=== PATIENT | male | born 1960 | race Caucasian/White ===

== ENCOUNTER 2016-09-10 12:47 | Inpatient (IN) | payer MEDICAID ==
--- NOTE | ~2016-09-10 | PN ---
Unit #: [id number] #: [id number] Patient: QING FERRARA [id number] [facility] [address] [place] [address] [id number] MR#: [id number] NAME: QING FERRARA ROOM: P206 Age: 56 Sex: M Admission Date: 09/10/2016 : 1960 Attending Physician: Huber Moon M.D. Admitting Physician: Huber Moon M.D. Primary Care Physician: Primary Care Physician Yi SETH PROGRESS NOTES DATE September 11, 2016 DISCUSSION Mr. Ferrara is a 56-year-old white male, with substance abuse and mood disorder, who was seen today and chart was reviewed and the case was discussed with the staff. He was seen to be anxious, withdrawn, unkept, and disheveled, and seclusive to himself, as he is detoxing. Meanwhile, he has been taking the medications and tolerating them fairly well with no reported side effects. MENTAL STATUS EXAMINATION Middle-aged white male, who was casually dressed with marginal personal hygiene and appears to be in no acute distress or discomfort. He was awake and alert on interaction with impaired attention and concentration. His mood is anxious with a congruent affect. His speech is slow and tangential. His thought processes are disorganized with some looseness of associations and flight of ideas. His insight and judgment remain significantly impaired. TREATMENT PLAN 1. We will continue him on his current medications and treatment protocol, and will monitor his response to the medications, and will maintain the detox treatment protocol. 2. We will continue to followup. Dictated by... Mimi Castro/colby TD: 09/12/2016 12:29 JOB #: [id number] Unit #: [id number] #: [id number] Patient: QING FERRARA PROGRESS NOTES X Huber Moon MD PROGRESS NOTE
--- NOTE | ~2016-09-10 | PA ---
Unit #: [id number] #: [id number] Patient: QING FERRARA [id number] [facility] [address] [place] [address] [id number] MR#: [id number] NAME: QING FERRARA ROOM: P206 Age: 56 Sex: M Admission Date: 09/10/2016 : 1960 Date of Assessment: Attending Physician: Huber Moon M.D. Admitting Physician: Huber Moon M.D. Primary Care Physician: Primary Care Physician No PSYCHIATRIC ASSESSMENT DATE OF SERVICE 09/10/2016. IDENTIFYING DATA Mr. Ferrara is a 56-year-old, single, white male, who is a resident of [place], [place] and was self-referred to the hospital on voluntary basis. CHIEF COMPLAINT "I'm drunk." HISTORY OF PRESENT ILLNESS Mr. Ferrara is a 56-year-old white male who was brought to the hospital on his own and upon presentation, had a blood alcohol level of 0.228 when assessed and was not seen to be in acute complications, therefore recommendation for the patient to stay for medical detox was made. The patient stated that since he got out of the [facility], he continues to drink every day which was 90 days ago and reports drinking 2 gallons of vodka a day. He reports that his last drink was 20 minutes ago and reports that he has a history of withdrawal seizures with the last one being last week and reports his longest time of nonuse of alcohol was 25 years, but this was due to being in [facility]. He denied any other substance abuse and reports increasing depression, anxiety, irritability, restlessness, feelings of hopelessness and helplessness, but denies any suicidal ideations, intent, or plan. SUBSTANCE ABUSE HISTORY The patient reports history of alcohol abuse and dependence and has been drinking since he was in his 20s and currently has relapsed 90 days ago when he got out of the [facility] and has been drinking 2 gallons of vodka a day. PAST PSYCHIATRIC HISTORY The patient has not had any prior inpatient or outpatient psychiatric or chemical dependency treatment. Review of the medical records indicate that currently he is not active in any treatment program, though he has been on Prozac and Remeron from the [facility] and it is not clear if he has been compliant with those medications as I could not see patient is seeing a psychiatrist outside of the present system. PAST MEDICAL HISTORY No acute or chronic medical illnesses. Unit #: [id number] #: [id number] Patient: QING FERRARA ALLERGIES No known medication allergies. PERSONAL AND SOCIAL HISTORY A 56-year-old white male who reports that he is single, unemployed, and lives by himself and has poor social support system. MENTAL STATUS EXAMINATION Middle-aged white male, who was casually dressed with fair personal hygiene, appears to be in no acute distress or discomfort. He was awake and alert on interaction with intact orientation to time, place, and person. His mood was anxious and depressed with a congruent affect. His speech was slow and goal directed. His thought processes were disorganized with some looseness of associations. He denies any suicidal or homicidal ideations, and also denies any auditory or visual hallucinations. His insight and judgment remain significantly impaired. DIAGNOSTIC IMPRESSION Psychiatric: Alcohol dependence, moderate and acute withdrawals; major depressive disorder, recurrent, moderate, without psychotic features. Medical: None. Stressors: Moderate psychosocial stressors. TREATMENT PLAN 1. The patient has presented with a history of substance abuse and mood disorder, and has been decompensating and will need inpatient hospitalization for detoxification, safety, and stabilization. We will start him on detox protocol. We will closely monitor for any worsening withdrawal symptoms. 2. Supportive therapy was provided to the patient. 3. Safe, structured, and nourishing environment will be provided. ESTIMATED LENGTH OF STAY 5 to 7 days. ABILITY TO HELP SELF Limited. WILLINGNESS TO HELP SELF The patient appears to be willing to help self. STRENGTHS 1. Communicative. 2. Cooperative. PROBLEMS 1. Chronic dysphoric symptoms. 2. Chronic chemical dependency. 3. Poor social support system. DISCHARGE CRITERIA This will be contingent upon the patient's ability to go through detox without having any significant withdrawal symptoms as well as his ability to stay safe to himself, particularly after discharge from the hospital. Dictated by... Unit #: [id number] #: [id number] Patient: QING FERRARA Mimi Castro/freedom TD: 09/11/2016 23:56 JOB #: [id number] PSYCHIATRIC ASSESSMENT X Huber Moon MD PSYCHIATRIC ASSESSMENT
--- NOTE | ~2016-09-10 | PN ---
Unit #: [id number] #: [id number] Patient: QING FERRARA [id number] [facility] [address] [place] [address] [id number] MR#: [id number] NAME: QING FERRARA ROOM: P206 Age: 56 Sex: M Admission Date: 09/10/2016 : 1960 Attending Physician: Huber Moon M.D. Admitting Physician: Huber Moon M.D. Primary Care Physician: Primary Care Physician Yi SKELTON NOTES DATE OF SERVICE: 09/12/2016 SUBJECTIVE Mr. Ferrara is a 56-year-old white male, who was seen today and chart was reviewed and the case was discussed with the staff. He has been anxious and withdrawn, but has not shown any agitation, irritability, or behavioral problems and has been cooperative with the treatment recommendations and has been taking the medications, though still has been anxious, restless, and in acute detox as well as unable to do activities of daily living and has not been able to take care of his personal hygiene as well. MENTAL STATUS EXAMINATION Middle-aged white male, who was casually dressed with marginal personal hygiene, appears to be in distress and discomfort. He was awake and alert with impaired attention and concentration. His mood was anxious with a congruent affect. His speech was slow and restricted in content. He denies any suicidal or homicidal ideations and also denies any auditory or visual hallucinations. His insight and judgment remain slightly impaired. TREATMENT PLAN 1. We will continue him on his current medications and detox protocol. We will monitor his response to the medications and make further adjustments as needed. 2. We will continue to follow up. Dictated by... Mimi Castro/freedom TD: 09/12/2016 14:02 JOB #: [id number] Unit #: [id number] #: [id number] Patient: QING FERRARA NAFISA NOTES X Huber Moon MD PROGRESS NOTE
--- NOTE | ~2016-09-10 | PN ---
Unit #: [id number] #: [id number] Patient: QING FERRARA [id number] [facility] [address] [place] [address] [id number] MR#: [id number] NAME: QING FERRARA ROOM: P206 Age: 56 Sex: M Admission Date: 09/10/2016 : 1960 Attending Physician: Huber Moon M.D. Admitting Physician: Huber Moon M.D. Primary Care Physician: Primary Care Physician Yi SKELTON NOTES DATE September 13, 2016 DISCUSSION Mr. Ferrara is a 56-year-old white male, with substance abuse and mood disorder, who was seen today and chart was reviewed and the case was discussed with the staff. He was lying in his bed and seemed to be anxious and withdrawn, unkept, disheveled, and seclusive to himself. Meanwhile, he has been compliant with the treatment recommendations and he has been taking the medications and tolerating them fairly well with no reported side effects. MENTAL STATUS EXAMINATION Middle-aged white male, who was casually dressed with marginal personal hygiene and appears to be in distress and discomfort. He was awake and alert on interaction with intact orientation. His mood is anxious with a congruent affect. His speech is slow and tangential. His thought processes are disorganized with some looseness of associations. His insight and judgment remain significantly impaired. TREATMENT PLAN 1. We will continue him on his current medications and treatment protocol, and will monitor his response to the medications, and make further adjustments as needed. 2. We will continue to followup. Dictated by... Mimi Castro/colby TD: 09/14/2016 09:50 JOB #: [id number] Unit #: [id number] #: [id number] Patient: QING FERRARA PROGRESS NOTES X Huber Moon MD PROGRESS NOTE
--- NOTE | ~2016-09-10 | HP ---
Unit #: [id number] #: [id number] Patient: ZAHEER CASILLAS [id number] [facility] [address] [place] [address] [id number] I MR#: [id number] NAME: ZAHEER CASILLAS ROOM: P206 Age: 56 Sex: M Admission Date: 09/10/2016 : 1960 Attending Physician: Huber Moon M.D. Admitting Physician: Huber Moon M.D. Primary Care Physician: Primary Care Physician No HISTORY AND PHYSICAL HISTORY OF PRESENT ILLNESS Zaheer is a 56 year old admitted to [address] [place] [address] because of his abuse of alcohol on 08/29/2016. He was admitted to [facility] in acute hypoxic respiratory failure secondary to his abuse of alcohol. When medically stable, he was transferred to [facility] for psychiatric care. The patient was seen and H and P from [facility] dated 08/30/2016 was reviewed. This is current. No changes. Please see H and P dated 08/30/2016 and discharge summary dated 08/31/2016. Dictated by... Cinthya Tang P.A.-C. for Mimi Quinn/mila TD: 09/11/2016 10:01 JOB #: [id number] HISTORY AND PHYSICAL X Cinthya Tang HISTORY AND PHYSICAL
--- NOTE | ~2016-09-10 | CO ---
Unit #: [id number] #: [id number] Patient: ZAHEER CASILLAS [id number] [facility] [address] [place] [address] [id number] I MR#: [id number] NAME: ZAHEER CASILLAS ROOM: P206 Age: 56 Sex: M Admission Date: 09/10/2016 : 1960 Attending Physician: Huber Moon M.D. Primary Care Physician: Primary Care Physician No Consultation Date: 09/10/2016 CONSULTATION REPORT SUBJECTIVE Zaheer is a 56-year-old who was admitted to [facility] from [facility] where he was treated for respiratory failure associated with his abuse of alcohol. When medically stable, he was transferred to [facility] for psychiatric care. At time of admission, he had some minimal swelling in both legs, right greater than left. There was some concern that this could be cellulitis or DVT. We have been asked to assess and treat. OBJECTIVE GENERAL: Alert, obese, no apparent distress. VITAL SIGNS: Blood pressure 120/88, heart rate 80, respirations 16, and T-max 98.6. SKIN: Warm and dry without rash. EXTREMITIES: No evidence of cyanosis or clubbing. Minimal swelling in both lower extremities, right greater than left. There is minimal redness in the right calf. SKIN: Intact. Negative Homans bilaterally. ASSESSMENT Dependent edema. PLAN Continue detox, hydration, and the patient knows to keep his legs elevated as much as he can during the day. Dictated by... Cinthya Tang P.A.-C. for Mimi Quinn/freedom TD: 09/17/2016 22:41 JOB #: [id number] Unit #: [id number] #: [id number] Patient: ZAHEER CASILLAS CONSULTATION REPORT X Cinthya Tang CONSULTATION REPORT
--- NOTE | ~2016-09-10 | DS ---
Unit #: [id number] #: [id number] Patient: [facility]ERR[facility] [id number] [facility] [address] [place] [address] [id number] I MR#: [id number] NAME: QING FERRARA ROOM: P206 Age: 56 Sex: M Admission Date: 09/10/2016 : 1960 Discharge Date: 09/13/2016 Attending Physician: Huber Moon M.D. Primary Care Physician: Primary Care Physician No DISCHARGE SUMMARY IDENTIFYING DATA Mr. Ferrara is a 56-year-old white male who is known to us from previous encounter and is a resident of [place], [place], and was transferred to us from [facility]. DISCHARGE DIAGNOSES Psychiatric: Alcohol dependence, moderate and acute withdrawal; alcohol-induced mood disorder. Medical: None. Stressors: Moderate psychosocial stressors. HISTORY OF PRESENT ILLNESS Please see initial psychiatric evaluation for details. PAST PSYCHIATRIC HISTORY Please see initial psychiatric evaluation for details. PAST MEDICAL HISTORY Please see initial psychiatric evaluation for details. HOSPITAL COURSE The [facility] and was oriented to the hospital environment. Routine p.r.n. medications were initiated and started back on his home medications. Medications were adjusted and he was started on the detox protocol; however, he was seen to be showing poor insight into his situation and refusing to cooperate with treatment recommendation and was wanting to sign out against medical advice and was denying any suicidal or homicidal ideation, and was not seen to be danger to self or anyone else, though he was encouraged to complete the treatment program. He refused to accept the treatment recommendations and as such, it was decided that he will be discharged against medical advice. DISCHARGE MEDICATIONS None. DISCHARGE CONDITION Stable. PROGNOSIS Guarded. Dictated by... Unit #: [id number] #: [id number] Patient: QING FERRARA Mimi Castro/freedom TD: 10/24/2016 12:49 JOB #: [id number] DISCHARGE SUMMARY Page 1 of 1 X Huber Moon MD X DISCHARGE SUMMARY
[~2016-09-10 12:47] MED LIST: NO MEDICATIONS
[2016-09-11 12:31] LABS: BASOPHIL# 0.1 X10e3 (0-0.3); BASOPHIL% 1.3 % (0-2.5); EOSINOPHIL# 0.1 X10e3 (0-0.7); EOSINOPHIL% 1.1 % (0.0-7.0); HEMATOCRIT 43.4 % (38.0-50.0); HEMOGLOBIN 13.9 gm/dL (13.0-16.0); LYMPHOCYTE# 0.7 X10e3 (1.0-3.5); LYMPHOCYTE% 9.8 % (17.0-45.0); MEAN CELL VOLUME 92.2 FL (83-96); MEAN CORPUSCULAR HEMOGLOBIN 29.4 PG (28-34); MEAN CORPUSCULAR HGB CONC 31.9 g/dL (30-36); MEAN PLATELET VOLUME 8.8 FL (6.5-11.5); MONOCYTE# 0.5 X10e3 (0-1.0); MONOCYTE% 7.2 % (3.0-12.0); NEUTROPHIL# 5.9 X10e3 (1.5-7.1); NEUTROPHIL% 80.6 % (40-75); PLATELET COUNT 216 X10e3 (140-420); RED BLOOD COUNT 4.71 X10e (3.90-5.60); RED CELL DISTRIBUTION WIDTH 17.2 % (11.0-15.5); WHITE BLOOD COUNT 7.4 X10e3 (4.0-10.5)
[2016-09-11 12:34] LABS: DIFF IND NO
[2016-09-11 12:47] LABS: ALBUMIN SERUM 3.1 g/dL (3.5-5.0); ALKALINE PHOSPHATASE 87 U/L (32-92); ALT (SGPT) 44 U/L (10-40); AST (SGOT) 48 U/L (10-42); BLOOD UREA NITROGEN 10 mg/dL (9-23); CALCIUM SERUM 8.6 mg/dL (8.4-10.2); CARBON DIOXIDE 29 mmol/L (22-31); CHLORIDE 101 mmol/L (100-111); CREATININE SERUM 0.8 mg/dL (0.6-1.4); GLOM FILT RATE Estimated ABOVE60 mL/min (>60); GLUCOSE FASTING 114 mg/dL (70-110); POTASSIUM 3.9 mmol/L (3.5-5.1); PROTEIN TOTAL SERUM 5.8 g/dL (6.0-8.3); SODIUM 136 mmol/L (135-145)
[2016-09-11 12:52] LABS: THYROID STIMULATING HORMONE 2.4 uIU/ml (0.34-5.60)
[2016-09-11 12:59] LABS: FREE THYROXIN (T4) 0.74 ng/dL (0.58-1.64)
[2016-09-12 09:53] LABS: URINE APPEARANCE CLEAR; URINE BLOOD NEG (NEG); URINE COLOR DK YELLOW; URINE GLUCOSE NEG (NEG); URINE KETONE 1+ (NEG); URINE LEUKOCYTE ESTERASE NEG (NEG); URINE NITRATE NEG (NEG); URINE PROTEIN 1+ (NEG); URINE SPECIFIC GRAVITY 1.017 (1.003-1.035)
[2016-09-12 10:00] LABS: URBCS1 AUWI 0-2 /[HPF] (0-2); URINE BACTERIA AUWI NEG (NEGATIVE); URINE SQUAMOUS EPITHELIAL CELL NONE SEEN /[HPF]
[2016-09-12 10:10] LABS: URINE BILIRUBIN NEG (NEG)
[2016-09-12 10:14] LABS: UWBCS1 AUWI 0-2 (0-5)
[2016-09-12 10:15] LABS: U HYALINE CASTS AUWI 0-2 /[LPF]; URINE GRANULAR CAST 0-2 /[HPF]; URINE MUCUS PRESENT; URINE SPERM PRESENT
[2016-09-12 10:35] LABS: AMPHETAMINE NEG (NEG); BARBITURATES NEG (NEG); BENZODIAZEPINES POS (NEG); COCAINE NEG (NEG); MARIJUANA NEG (NEG); OPIATES NEG (NEG); TRICYCLIC ANTIDEPRESSANTS NEG (NEG); U METHADONE NEG (NEG)
== END 2016-09-13 14:15 | disposition left against medical advice (07) | DRG 894 ==
LOC: P2S 12:47
PROVIDERS: Psychiatry & Neurology Psychiatry
PROC: HZ2ZZZZ Detoxification Services for Substance Abuse Treatment (ICD-10-PCS; principal; 2016-09-10)
DX: F10.239 Alcohol dependence with withdrawal, unspecified (principal); F33.1 Major depressive disorder, recurrent, moderate; Y90.7 Blood alcohol level of 200-239 mg/100 ml
CPT/HCPCS: 80053; 80307; 81003; 84439; 84443; 85025; 86592

== ENCOUNTER 2016-10-19 12:51 | Inpatient (IN) | payer MEDICAID ==
--- NOTE | ~2016-10-19 | DS ---
Unit #: [id number] #: [id number] [facility]: [facility]ARA [id number] [facility] [address] [place] [address] [id number] I MR#: [id number] NAME: QING FERRARA ROOM: [facility] Age: 56 Sex: M Admission Date: 10/19/2016 : 1960 Discharge Date: Attending Physician: Huber Moon M.D. DISCHARGE SUMMARY IDENTIFYING DATA Mr. Ferrara is a 56-year-old single white male, who is a resident of [place], [place] and is known to us from previous encounter and was self-referred to the hospital. DISCHARGE DIAGNOSES Psychiatric: Alcohol dependence, moderate, in acute withdrawals; alcohol-induced mood disorder. Medical: None. Stressors: Moderate psychosocial stressors. HISTORY OF PRESENT ILLNESS Please see initial psychiatric evaluation for details. PAST PSYCHIATRIC HISTORY Please see initial psychiatric evaluation for details. PAST MEDICAL HISTORY Please see initial psychiatric evaluation for details. HOSPITAL COURSE The patient was admitted to the adult chemical dependency unit at [facility] christina Melendrez and was oriented to the hospital environment. Routine p.r.n. medications were initiated and started on the detox protocol and was closely monitored. He was seen to be anxious, restless, and showing very poor insight into situation, poor motivation towards treatment. However, he was able to come out of the detox without any complications and is willing to continue treatment on an outpatient basis and as such, it was decided that he will be discharged home and will continue treatment on an outpatient basis. DISCHARGE CONDITION Stable. PROGNOSIS Fair. Dictated by... Huber Moon M.D. IAA/modl Unit #: [id number] #: [id number] Patient: QIGN FERRARA TD: 10/24/2016 07:21 JOB #: [id number] DISCHARGE SUMMARY Page 1 of 1 X Huber Moon MD X DISCHARGE SUMMARY
--- NOTE | ~2016-10-19 | PN ---
Unit #: [id number] #: [id number] Patient: QING FERRARA [id number] [facility] [address] [place] [address] [id number] I MR#: [id number] NAME: QING FERRARA ROOM: P207 Age: 56 Sex: M Admission Date: 10/19/2016 : 1960 Attending Physician: Huber Moon M.D. Admitting Physician: Huber Moon M.D. Primary Care Physician: Generic Doctor Not In System [facility] PROGRESS NOTES DATE 10/22/2016 DISCUSSION Mr. Ferrara is a 56-year-old white male with alcohol dependence who was seen today and chart was reviewed and case was discussed with the staff who report patient has been confused, anxious, disorganized and has been exhibiting bizarre behavior and has been pushing to leave even though he is quite compromised, unstable and unsteady on his feet with personal hygiene. MENTAL STATUS EXAMINATION Middle-aged white male who was casually dressed with fair personal hygiene and appears to be in no acute distress or discomfort. He was awake and alert with impaired attention and concentration. His mood was anxious with congruent affect. His speech is slow and restricted in content. His thought processes were disorganized with some looseness of associations. His insight and judgement remains significantly impaired. TREATMENT PLAN 1. Will continue him on his current medications and treatment protocol. Will monitor response to medications and make further adjustments as needed. 2. Will continue to follow up. Dictated by... Mimi Castro/robson TD: 10/23/2016 22:58 JOB #: [id number] Unit #: [id number] #: [id number] Patient: QING FERRARA PROGRESS NOTES Page 1 of 1 X Huber Moon MD PROGRESS NOTE
--- NOTE | ~2016-10-19 | HP ---
Unit #: [id number] #: [id number] Patient: ZAHEER CASILLAS [id number] [facility] [address] [place] [address] [id number] I MR#: [id number] NAME: ZAHEER CASILLAS ROOM: P207 Age: 56 Sex: M Admission Date: 10/19/2016 : 1960 Attending Physician: Huber Moon M.D. Admitting Physician: Huber Moon M.D. Primary Care Physician: Generic Doctor Not In System HISTORY AND PHYSICAL HISTORY OF PRESENT ILLNESS Zaheer is a 56-year-old male admitted to [address] [place] [address] for detox from alcohol. PAST MEDICAL HISTORY None. PAST SURGICAL HISTORY None. SOCIAL HISTORY Smokes 1 pack of cigarettes daily; drinks 2 fifths of alcohol daily. Denies illegal drug use. He is currently and homeless. FAMILY HISTORY Noncontributory. REVIEW OF SYSTEMS CONSTITUTIONAL: No fever or chills. HEENT: Denies any sore throat, ear pain or runny nose. CARDIOVASCULAR: Denies chest pain, irregular heart rhythm or palpitations. CHEST: Denies shortness of breath or cough. No hemoptysis. GASTROINTESTINAL: Denies nausea, vomiting, diarrhea or chronic constipation. ENDOCRINE: Denies history of increased thirst or urination. No recent significant weight loss or gain. GENITOURINARY: Denies dysuria, frequency, or hematuria. SKIN: Denies any rashes. HEMATOLOGIC: Denies history of increased bleeding or bruising. MUSCULOSKELETAL: Denies any hot, swollen joints. No generalized muscle pain. NEUROLOGIC: Denies problems with vision or speech. No frequent, severe headaches. No numbness, tingling or weakness in any extremities. Denies loss of bladder or bowel control. CURRENT MEDICATIONS None. ALLERGIES None. PHYSICAL EXAMINATION GENERAL: Alert, oriented, no acute distress. Unit #: [id number] #: [id number] Patient: ZAHEER CASILLAS VITAL SIGNS: Blood pressure 157/97, heart rate 91, respirations 20, temperature 97.7. HEIGHT: 5 feet 8. WEIGHT: 198 pounds. SKIN: Warm, dry. No rashes or lesions, track boyd, cuts, etc. HEENT: Normocephalic. TMs not viewed. Oronasal passages clear. Conjunctivae clear. PERRLA. EOM is intact. NECK: No lymphadenopathy or thyromegaly. HEART: Regular rate and rhythm. No murmur, gallop, or rub. LUNGS: Clear to auscultation bilaterally. ABDOMEN: Soft, nontender without palpable masses or hepatosplenomegaly. : Not assessed. EXTREMITIES: No evidence of cyanosis, clubbing, or edema. Moves all extremities independently without obvious deficit. NEUROLOGICAL: Grossly within normal limits. Cranial Nerves: II: Visual florence are intact. III, IV AND : Extraocular movements are intact. Pupils are equal, round and reactive to light. V: Facial sensation is grossly normal. VII: Facial movements and expression are normal. VIII: Auditory acuity grossly intact. IX, X: Uvula is midline. Phonation is normal. XI: Patient shrugs shoulders and turns head normally. XII: Tongue protrudes in the midline. Sensory and Motor Function: Sensory and motor sensation is grossly normal. Motor: moves all extremities well. Coordination: Gait is normal. Deep Tendon Reflexes: Intact. IMPRESSION Psychiatric admission. RECOMMENDATIONS PSYCHIATRIC: Per psychiatrist. MEDICAL: No contraindication to participate in this facility's activities. MEDICAL PROGNOSIS Good. MEDICAL CONDITION Stable. Dictated by... Gracy Perez TD: 10/20/2016 14:09 JOB #: [id number] Unit #: [id number] #: [id number] Patient: ZAHEER CASILLAS HISTORY AND PHYSICAL Page 1 of 1 X CHRIS WIN APRN X HISTORY AND PHYSICAL
--- NOTE | ~2016-10-19 | PN ---
Unit #: [id number] #: [id number] Patient: QING FERRARA [id number] [facility] [address] [place] [address] [id number] I MR#: [id number] NAME: QIGN FERRARA ROOM: P207 Age: 56 Sex: M Admission Date: 10/19/2016 : 1960 Attending Physician: Huber Moon M.D. Admitting Physician: Huber Moon M.D. Primary Care Physician: Generic Doctor Not In System [facility] PROGRESS NOTES DATE 10/20/2016 DISCUSSION Mr. Ferrara is a 56-year-old, white male who was seen today and chart was reviewed and case was discussed with the staff. He has been anxious, restless, irritable and impulsive, shaking, tremulous and unsteady on his feet. Meanwhile, he has been taking his medications and tolerating them fairly well with no reported side effects. MENTAL STATUS EXAM Middle-aged white male who was casually dressed with marginal personal hygiene, appears to be in distress or discomfort. He was awake and alert and alert with impaired attention and concentration. His mood was anxious with congruent affect. His speech was slow and restricted in content. He denies any suicidal or homicidal ideation. His insight and judgement remains slightly impaired. TREATMENT PLAN 1. We will continue him on his current medications and treatment protocol. We will monitor his response to medications and make further adjustments as needed. 2. We will continue to follow up. Dictated by... Mimi Castro/joseph TD: 10/22/2016 03:35 JOB #: [id number] Unit #: [id number] #: [id number] Patient: QING FERRARA PROGRESS NOTES Page 1 of 1 X Huber Moon MD X PROGRESS NOTE
--- NOTE | ~2016-10-19 | PN ---
Unit #: [id number] #: [id number] Patient: QING FERRARA [id number] [facility] [address] [place] [address] [id number] MR#: [id number] NAME: QING FERRARA ROOM: P207 Age: 56 Sex: M Admission Date: 10/19/2016 : 1960 Attending Physician: Huber Moon M.D. Admitting Physician: Huber Moon M.D. Primary Care Physician: Generic Doctor Not In System [facility] PROGRESS NOTES DATE 10/21/2016 DISCUSSION Mr. Ferrara is a 56-year-old, white male with alcohol dependence and mood disorder who was seen today and chart was reviewed and case was discussed with the staff who reports the patient remains anxious, restless, disorganized and unsteady on his feet and appears to be actively detoxing. Meanwhile, he has been taking medications and tolerating them fairly well. MENTAL STATUS EXAM Middle-aged white male who was casually dressed with fair personal hygiene, appears to be in no acute distress or discomfort. He was awake and alert on interaction with intact orientation. His mood was anxious with congruent affect. He denies any suicidal or homicidal ideation. His insight and judgement remains slightly impaired. TREATMENT PLAN 1. We will continue him on his current treatment protocol. We will monitor his response and make further adjustments as needed. 2. We will continue to follow up. Dictated by... Mimi Castro/joseph TD: 10/22/2016 22:59 JOB #: [id number] Unit #: [id number] #: [id number] Patient: QING FERRARA PROGRESS NOTES Page 1 of 1 X Huber Moon MD PROGRESS NOTE
--- NOTE | ~2016-10-19 | PA ---
Unit #: [id number] #: [id number] Patient: QING FERRARA [id number] [place] [address] [id number] MR#: [id number] NAME: QING FERRARA ROOM: [facility] Age: 56 Sex: M Admission Date: 10/19/2016 : 1960 Date of Assessment: Attending Physician: Huber Moon M.D. Admitting Physician: Huber Moon M.D. PSYCHIATRIC ASSESSMENT DATE OF SERVICE 10/19/2016. IDENTIFYING DATA Mr. Ferrara is a 56-year-old single white male, who is a resident of [place], [place], and was self-referred to the hospital on a voluntary basis. CHIEF COMPLAINT "I need to detox from alcohol." HISTORY OF PRESENT ILLNESS Mr. Ferrara is a 56-year-old white male with long history of alcohol dependence, who is known to us from previous encounter, and reports that he went to [facility] today and reports being sent to [facility] for medical detox and reports that he is detoxing off alcohol and that he has had a 40-year history of being addicted to alcohol and reports that he has been drinking three one-fifths of vodka and had three one-fifths of vodka yesterday and reports drinking at least a gallon of alcohol on a daily basis and his longest period of non abuse of alcohol was 13 years and reports the only reason he stayed sober was due to being in [facility] and reports that his detox symptoms has been worsening and he has not been functioning and was seen to be anxious, withdrawn, unkempt, disheveled, in acute distress and discomfort and as such, a recommendation for inpatient level of care for safety and stabilization was made and the patient was stepped up to the inpatient unit. SUBSTANCE ABUSE HISTORY The patient reports drinking alcohol since he was 21 years old and currently has been drinking a gallon of liquor on a daily basis. He denies any other drug abuse. PAST PSYCHIATRIC HISTORY The patient has had a history of inpatient chemical dependency treatment at [facility], and review of the medical records indicate that currently he is not active in any treatment program, is not seeing a psychiatrist, and is not taking any psychotropic medications. PAST MEDICAL HISTORY No acute or chronic medical illnesses. ALLERGIES No known medication allergies. Unit #: [id number] #: [id number] Patient: QING FERRARA CURRENT MEDICATIONS None. PERSONAL AND SOCIAL HISTORY A 56-year-old white male, who reports that he is single, unemployed, and lives alone and has poor social support system. MENTAL STATUS EXAMINATION Middle-aged white male, who was casually dressed with fair personal hygiene, appears to be in no acute distress or discomfort. He was awake and alert on interaction with intact orientation to time, place, and person. His mood was anxious and depressed with a congruent affect. His speech was slow and restricted in content. His thought processes were disorganized with some looseness of associations and flight of ideas. His insight and judgment remain significantly impaired. DIAGNOSTIC IMPRESSION Psychiatric: Alcohol dependence, moderate, in acute withdrawals and alcohol-induced mood disorder. Medical: None. Stressors: Moderate psychosocial stressors. TREATMENT PLAN 1. The patient has presented with a history of substance abuse and mood disorder and psychosis and has been decompensating and will need inpatient hospitalization for detoxification, safety, and stabilization. We will start him back on his home medications and we will adjust the medications and monitor response. 2. Supportive therapy was provided to the patient. 3. Safe, structured, and nourishing environment will be provided. ESTIMATED LENGTH OF STAY 5 to 7 days. ABILITY TO HELP SELF Limited. WILLINGNESS TO HELP SELF The patient appears to be willing to help self. STRENGTHS 1. Communicative. 2. Cooperative. PROBLEMS 1. Chronic dysphoric symptoms. 2. Chronic chemical dependency. 3. Poor social support system. DISCHARGE CRITERIA This will be contingent upon the patient's ability to go through detox without having any significant withdrawal symptoms as well as his ability to stay safe to himself, particularly after discharge from the hospital. Dictated by... Huber Moon M.D. Unit #: [id number] #: [id number] Patient: QING FERRARA IAA/modl TD: 10/20/2016 15:29 JOB #: [id number] PSYCHIATRIC ASSESSMENT Page 1 of 1 X Huber Moon MD PSYCHIATRIC ASSESSMENT
--- NOTE | ~2016-10-19 | PN ---
Unit #: [id number] #: [id number] Patient: QING FERRARA [id number] [facility] [address] [place] [address] [id number] MR#: [id number] NAME: QING FERRARA ROOM: P207 Age: 56 Sex: M Admission Date: 10/19/2016 : 1960 Attending Physician: Huber Moon M.D. Admitting Physician: Huber Moon M.D. Primary Care Physician: Kimberlee Doctor Not In System [facility] PROGRESS NOTES DATE 10/23/2016. DISCUSSION Mr. Ferrara is a 56-year-old white male who was seen today and chart reviewed. The case was discussed with the staff. He has been anxious and bizarre and rather seclusive to himself. He was cooperative with treatment recommendations. He has been taking his medications and tolerating them fairly well with no reported side effects. MENTAL STATUS EXAMINATION Middle-aged white male who was casually dressed with fair personal hygiene, who appears to be in no acute distress or discomfort. He was awake and alert with impaired attention and concentration. His mood was anxious with congruent affect. His speech was slow and restricted in content. He denies any suicidal or homicidal ideation. His insight and judgement remain significantly impaired. TREATMENT PLAN 1. Will continue him on his current medications and treatment protocol. Will monitor his response to medications and make further adjustments as needed. 2. Will continue to follow up. Dictated by... Huber Moon M.D. IAA/gz TD: 10/24/2016 14:47 JOB #: [id number] Unit #: [id number] #: [id number] Patient: QING FERRARA PROGRESS NOTES Page 1 of 1 X Huber Moon MD X PROGRESS NOTE
[2016-10-20 11:22] LABS: BASOPHIL# 0.1 X10e3 (0-0.3); DIFF IND NO; EOSINOPHIL# 0.1 X10e3 (0-0.7); EOSINOPHIL% 2.5 % (0.0-7.0); HEMATOCRIT 48.2 % (38.0-50.0); HEMOGLOBIN 15.6 gm/dL (13.0-16.0); LYMPHOCYTE# 1.2 X10e3 (1.0-3.5); LYMPHOCYTE% 22.7 % (17.0-45.0); MEAN CELL VOLUME 92.6 FL (83-96); MEAN CORPUSCULAR HGB CONC 32.4 g/dL (30-36); MEAN PLATELET VOLUME 8.7 FL (6.5-11.5); MONOCYTE# 0.4 X10e3 (0-1.0); MONOCYTE% 8.6 % (3.0-12.0); NEUTROPHIL# 3.4 X10e3 (1.5-7.1); NEUTROPHIL% 65.2 % (40-75); PLATELET COUNT 63 X10e3 (140-420); RED CELL DISTRIBUTION WIDTH 17.6 % (11.0-15.5); WHITE BLOOD COUNT 5.1 X10e3 (4.0-10.5)
[2016-10-20 13:18] LABS: THYROID STIMULATING HORMONE 4.62 uIU/ml (0.34-5.60)
[2016-10-20 13:25] LABS: ALBUMIN SERUM 4.2 g/dL (3.5-5.0); BILIRUBIN,TOTAL 1.3 mg/dL (0.2-2.0); CALCIUM SERUM 9.9 mg/dL (8.4-10.2); CREATININE SERUM 0.7 mg/dL (0.6-1.4); FREE THYROXIN (T4) 0.84 ng/dL (0.58-1.64); GLOM FILT RATE Estimated 106.3 mL/min (>60); POTASSIUM 3.7 mmol/L (3.5-5.1); PROTEIN TOTAL SERUM 6.7 g/dL (6.0-8.3)
[2016-10-21 11:19] LABS: URINE BILIRUBIN NEG (NEG); URINE BLOOD NEG (NEG); URINE COLOR YELLOW; URINE GLUCOSE NEG (NEG); URINE KETONE NEG (NEG); URINE LEUKOCYTE ESTERASE NEG (NEG); URINE NITRATE NEG (NEG); URINE PROTEIN NEG (NEG); URINE SPECIFIC GRAVITY 1.002 (1.003-1.035); URINE UROBILINOGEN 0.2 MG/DL (NEG)
[2016-10-21 11:24] LABS: URINE APPEARANCE CLEAR
[2016-10-21 11:33] LABS: AMPHETAMINE NEG (NEG); BARBITURATES NEG (NEG); BENZODIAZEPINES NEG (NEG); COCAINE NEG (NEG); MARIJUANA NEG (NEG); OPIATES NEG (NEG); TRICYCLIC ANTIDEPRESSANTS NEG (NEG); U METHADONE NEG (NEG)
== END 2016-10-24 11:17 | disposition home or self-care (01) | DRG 897 ==
LOC: P2S 12:51
PROVIDERS: Psychiatry & Neurology Psychiatry
PROC: HZ2ZZZZ Detoxification Services for Substance Abuse Treatment (ICD-10-PCS; principal; 2016-10-19)
DX: F10.230 Alcohol dependence with withdrawal, uncomplicated (principal); F10.24 Alcohol dependence with alcohol-induced mood disorder; Y90.8 Blood alcohol level of 240 mg/100 ml or more; F17.210 Nicotine dependence, cigarettes, uncomplicated; Z59.0 Homelessness
CPT/HCPCS: 80053; 80307; 81003; 84439; 84443; 85025; 86592

== ENCOUNTER 2017-02-28 16:10 | Emergency (ER) | payer MEDICAID ==
[~2017-02-28] VITALS: Ht 172.7 cm; Wt 88.5 kg
--- NOTE | ~2017-02-28 | ER ---
Unit #: [id number] #: [id number] Patient: QING FERRARA [id number] [address] [place], [place] [address] [id number] MR#: [id number] NAME: QING FERRARA ROOM: Sex: M Age: 57 : 1960 Service Date: 02/28/2017 Attending Physician: Jersey Nance M.D. EMERGENCY DEPT PHYSICIAN NOTE Please see the written T-sheet for the full details of the encounter. Mr. Ferrara is a 57-year-old man with a long history of alcoholism and previous DTs with seizures. He stated that this morning he had a seizure that was witnessed by his roommate, but he is unsure of the details and unable to verify any specifics about the event other than to report that it happened. He states he is here in the emergency department today for an evaluation of vomiting blood, coughing up blood, and blood in his stool that had been present for many months. He stated that he had been worked up for this before in the past but is unable to say if he has had endoscopy or consultation by a lay brother. The patient admitted to drinking at least a pint of alcohol today and had alcohol present in his belongings in the room. The patient was examined, and a rectal exam was performed which did show trace positive blood in the stool. However, it was grossly negative. The patient, though admitting to having drank significant amounts of alcohol today, was clinically sober. He was not slurring his words, and he was able to ambulate with a steady gait. The plan of care was explained to the patient including labs to address his complaints, as well as medicines to treat a potential gastritis or ulcer were ordered. I mentioned to the patient that alcoholic beverage was prohibited on the campus after noticing a bottle of liquor in his bag. The patient stated he did not care, and that he was not willing to relinquish the alcohol. Security was called, and when they went to take it, he stated if they were going to take his alcohol, he wanted to leave against medical advice. I confirmed this with the patient who stated he was unwilling to give up his alcohol and thus wanted to leave without treatment and further workup. He was cautioned about potential diagnoses such as gastritis, ulcer, or possibly even varices causing his bleeding which could potentially cause life-threatening consequences if not discovered. He understands these consequences and still wished to leave the hospital against medical advice. He will be encouraged to follow up with his doctor as soon as possible and also encouraged to seek treatment for alcohol abuse. Dictated by... Mimi Morales/javi TD: 02/28/2017 21:23 JOB #: [id number] Unit #: [id number] #: [id number] Patient: QING FERRARA EMERGENCY DEPT PHYSICIAN NOTE Page 1 of 1 X Jersey Nance MD X EMERGENCY DEPARTMENT REPORT
[2017-02-28 17:55] LABS: BASOPHIL# 0.1 X10e3 (0-0.3); BASOPHIL% 1.8 % (0-2.5); EOSINOPHIL# 0.1 X10e3 (0-0.7); EOSINOPHIL% 1.3 % (0.0-7.0); LYMPHOCYTE# 0.9 X10e3 (1.0-3.5); LYMPHOCYTE% 17.8 % (17.0-45.0); MEAN CELL VOLUME 100.4 FL (83-96); MEAN CORPUSCULAR HEMOGLOBIN 34.3 PG (28-34); MEAN CORPUSCULAR HGB CONC 34.2 g/dL (30-36); MEAN PLATELET VOLUME 7.9 FL (6.5-11.5); MONOCYTE# 0.5 X10e3 (0-1.0); MONOCYTE% 10.6 % (3.0-12.0); NEUTROPHIL# 3.4 X10e3 (1.5-7.1); NEUTROPHIL% 68.5 % (40-75); PLATELET COUNT 67 X10e3 (140-420); RED BLOOD COUNT 4.08 X10e (3.90-5.60)
[2017-02-28 17:57] LABS: DIFF IND YES
[2017-02-28 18:00] LABS: INR 0.9; PARTIAL THROMBOPLASTIN TIME 25.2 SECONDS (23.5-31.3); PROTHROMBIN TIME (PATIENT) 9.9 SECONDS (10.0-11.7)
[2017-02-28 18:08] LABS: ALBUMIN SERUM 3.5 g/dL (3.5-5.0); BILIRUBIN, DIRECT 0.2 mg/dL (0.0-0.2); BILIRUBIN,INDIRECT 0.4 mg/dL (0.0-0.9); BILIRUBIN,TOTAL 0.6 mg/dL (0.2-2.0); CALCIUM SERUM 8.4 mg/dL (8.4-10.2); CREATININE SERUM 0.5 mg/dL (0.6-1.4); GLOM FILT RATE Estimated 121.2 mL/min (>60); PROTEIN TOTAL SERUM 6.3 g/dL (6.0-8.3)
[2017-02-28 18:12] LABS: POTASSIUM 2.6 mmol/L (3.5-5.1)
[2017-02-28 18:39] LABS: HYPOCHROMIA SL; PLATELET ESTIMATE DECREASED (NORMAL)
== END 2017-02-28 17:40 | disposition left against medical advice (07) ==
LOC: CED 16:10
PROVIDERS: Emergency Medicine
DX: R10.12 Left upper quadrant pain (principal); F10.10 Alcohol abuse, uncomplicated
CPT/HCPCS: 36415; 80048; 80076; 85025; 85610; 85730; 86850; 86900; 86901; 99284; G0480